=== PATIENT | female | born 1975 | race African-American/Black ===

== ENCOUNTER 2023-01-06 11:13 | Emergency (ER) | payer SELFPAY ==
--- OUTSIDE RECORDS SUMMARY | 2023-01-06 11:15 | XMS REPORT | Continuity of Care Document ---
:1975 Author Organization [facility] t Address [address] [place] [address]. [address] [place] [address] Care Team Providers Name Role Phone ATTAR, LYNDSEY Primary Care Physician Unavailable BISI BUTLER Attending Clinician Unavailable BISI BUTLER Admitting Clinician Unavailable Payers Payer Name Policy Type Policy Number Effective Date Expiration Date S amauri MEDICARE PART A [id number] 2012 \T\ B 00:00:00 Problems This patient has no known problems. Allergies, Adverse Reactions, Alerts Allergy Allergy Status Severity Reaction(s) Onset Inactive Treating Comm ents Source Name Type Date Date Clinician LATEX DRUG Active Hives 2020-0 [facility] ity of 00:00: [address] DAYA DRUG Active Hives 0 [facility] ity of 00:00: [address] MELON DRUG Active Hives 2020-0 [facility] ity of 00:00: [address] NO KNOWN Drug Active [facility] ALLERGIE Class ity of S [facility] Social History Social Habit Start Date Stop Date Quantity Comments Source Gender identity [facility] Sexual orientation [facility] Sex Assigned At [birth year] Met [facility] 00:00:00 00:00:00 Smoking Status Start Date Stop Date Source Tobacco smoking consumption unknown [facility] Medications Ordered Filled Start Stop Current Ordering Indication Dosage Frequency Signature Comments Components Source Medication Medication Date Date Medication? Clinician (SIG) Name Name captopril Yes 6.25mg Q.5D Take 6.25 M ethodi (CAPOTEN) 6-[address] 12.5 MG 13:53: mouth 2 [facility]osp[facility] tablet 15 (two) l times a day. furosemide 2018-0 Yes 40mg Q.5D Take 40 mg M ethodi (LASIX) 40 6-[address] mg tablet 13:53: (two) Hospita 15 times a l day. digOXIN 2018-0 Yes 125ug QD Take 125 Metho di (LANOXIN) 6-[address] 125 mcg 13:53: mouth Hospita tablet 15 daily. l spironolact 2018-0 Yes 25mg QD Take 25 mg [facility] one 6-[address] (ALDACTONE) 13:53: daily. Hosp arcadio 25 MG 15 l tablet minocycline 2018-0 Yes 100mg Q.5D Take 100 M ethodi (MINOCIN,DY 6-[address] NACIN) 100 13:53: mouth 2 Hosp [facility] MG capsule 15 (two) l times a day. aspirin 2018-0 Yes 81mg QD Take 81 mg Meth tobias (ECOTRIN) 6-[address] 81 MG 13:53: daily. Hospita enteric 15 chewable l coated tablet clopidogrel 2018-0 Yes 75mg QD Take 75 mg [facility] (PLAVIX) 75 6-[address] mg tablet 13:53: daily. Hospit a 15 l carvedilol 2018-0 Yes 25mg Q.5D Take 25 mg M [facility]i (COREG) 25 6-[address] MG tablet 13:53: (two) Hospita 15 times a l day with meals. Procedures This patient has no known procedures. Plan of Care Planned Activity Planned Date Details Comments Source Future Scheduled 2022-12-23 Screening for [facility] Test 07:00:16 malignant neoplasm of colon (procedure) [code = 738579004] Future Scheduled 2022-12-23 Screening for [facility] Test 07:00:16 malignant neoplasm of colon (procedure) [code = 225390612] Future Scheduled 2022-12-23 Screening for [facility] Test 07:00:16 malignant neoplasm of colon (procedure) [code = 543503573] Future Scheduled 2022-12-23 [facility] 07:[facility]:16 (#1) [code = COVID-19 VACCINE (#1)] Future Scheduled 2022-12-23 Screening for [facility] Test 07:00:16 malignant neoplasm of cervix (procedure) [code = 776680946] Future Scheduled 2022-12-23 BREAST CANCER [facility] Test 07:00:16 SCREENING [code = BREAST CANCER SCREENING] Future Scheduled 2022-12-23 Screening for [facility] Test 07:00:16 malignant neoplasm of colon (procedure) [code = 401337097] Future Scheduled 2022-12-23 Screening for [facility] Test 07:00:16 malignant neoplasm of colon (procedure) [code = 702618803] Future Scheduled 2022-12-23 INFLUENZA VACCINE [facility] Test 07:00:16 [code = INFLUENZA VACCINE] Encounters Start End Encounter Admission Attending Care Care Encounter Source Date/Time Date/Time Type Type Clinicians Facility Department ID 2020-07-27 2020-08-01 Inpatient X JAVIER BUTLER [facility] [id number] [facility] 10:01:00 16:25:00 BISI vickers of [facility] Results This patient has no known results.
[2023-01-06 11:57] LABS: Absolute Lymphocytes (CBC) 2.2 K/uL (0.7-4.9); Hematocrit 44.9 % (36.0-45.0); Lymphocytes % 29.5 % (15.3-44.8); MPV 9.9 fL (7.6-11.3); Platelets 196 thou/uL (152-406); RBC Red Blood Cell Count 5.68 M/uL (3.86-4.86)
[2023-01-06 12:03] LABS: Protime INR 1.25
[2023-01-06 12:03] LABS: Arterial Blood Carboxyhemoglob 0.8 % (0-1.5); Blood Gas Oxyhemoglobin 11.1 % (94-97); Blood O2 Saturation 11.4 % (92-98.5)
[2023-01-06] MEDS ORDERED: NA CHLORIDE 0.9% 100 ML ONE (12:14)
[2023-01-06] MEDS ORDERED: CEFEPIME 2 GM VIAL ONE (12:14)
[2023-01-06 12:17] LABS: Albumin 3.8 g/dL (3.4-5.0); Bilirubin Total 1.5 mg/dL (0.2-1.0); Magnesium 2.2 mg/dL (1.6-2.4); Potassium 3.4 mEq/L (3.5-5.1); Protein, Total 9.2 g/dL (6.4-8.2)
--- NOTE | 2023-01-06 12:25 | RAD REPORT ---
EXAM DESCRIPTION: [facility] [place] Single View01/06/2023 12:18 pm CLINICAL HISTORY: DYSPNEA COMPARISON: CHEST PA AND LAT 2 VIEW dated 09/24/2009; CHEST SINGLE VIEW dated 09/23/2009; CHEST SINGLE V IEW dated 08/22/2009; CHEST SINGLE VIEW dated 08/05/2009 TECHNIQUE: Portable AP view of the chest. FINDINGS: Mild central interstitial prominence. Left chest wall pacer/ AICD in place. No pneumothora x or effusion. The heart remains mildly enlarged. Mediastinal contours are unchanged. IMPRESSION: Central interstitial prominence which could reflect mild central congestion or early joanne maJohn
[2023-01-06 12:37] LABS: Troponin High Sensitivity 1560.8 pg/mL (<58.9)
[2023-01-06] MEDS ORDERED: ONDANSETRON 4 MG/2 ML VIAL ONE (13:13)
--- NOTE | 2023-01-06 13:27 | RAD REPORT ---
EXAM DESCRIPTION: CTAbdomen Pelvis W Contrast - 01/06/2023 1:14 pm CLINICAL HISTORY: Abdominal pain. ABD PAIN COMPARISON: <Comparisons> TECHNIQUE: Biphasic CT imaging of the abdomen and pelvis was performed with 100 ml non-ionic IV cont rast. All CT scans are performed using dose optimization technique as appropriate and may include automated exposure control or mA/KV adjustment according to patient size. FINDINGS: Mild opacities in both lung bases, nonspecific. The majority of the contrast material is in the heart and in the venous system. This may be related t o cardiac dynamics. Significant contrast is seen in the hepatic veins. No focal liver mass or biliary dilatation. Cholecy stectomy clips. The spleen, pancreas, adrenal glands and kidneys are within normal limits No bowel obstruction, free air, free fluid or abscess. Trace pelvic free fluid. The appendix is kiley l. No evidence of significant lymphadenopathy. No suspicious bony findings. IMPRESSION: No acute intra-abdominal or pelvic finding.
[2023-01-06] MEDS ORDERED: NA CHLORIDE 0.9% 500 ML ONE (13:46)
[2023-01-06] MEDS ORDERED: DIGOXIN 0.25 MG/ML AMP ONE (14:24)
[2023-01-06] MEDS ORDERED: LORazepam 2 MG/ML VIAL ONE (14:43)
--- NOTE | 2023-01-06 16:20 | ER ---
Nurse's Notes [facility] Name: Prabha Olson Age: 47 yrs Sex: Female : 1975 Arrival Date: 01/06/2023 Time: 11:13 Bed 2 Private MD: Diagnosis: Atrial flutter with rapid rate;NSTEMI;Septic shock;Nausea vomiting;Diarrhea;Acute kidney injury Presentation: 01/06 11:11 Chief complaint: EMS states: Shortness of breath today. Has had N/V/D since Wednesday. nj1 Uses 2 LPM via NC PRN. EMS reports SPO2 of 79% on the 2 LPM. BP 73/44. Started her on bolus NS. EMS reports temp of 100.3. 11:11 Coronavirus screen: Vaccine status: Patient reports receiving the 2nd dose of the covid nj1 vaccine. Ebola Screen: Patient denies travel to an Ebola-affected area in the 21 days before illness onset. Initial Sepsis Screen: Does the patient meet any 2 criteria? HR > 90 bpm. No. Patient's initial sepsis screen is negative. Does the patient have a suspected source of infection? No. Patient's initial sepsis screen is negative. Risk Assessment: Do you want to hurt yourself or someone else? Patient reports no desire to harm self or others. Onset of symptoms was January 06, 2023. Care prior to arrival: Medication(s) given: Normal saline infusion, Given 300ml. Orders to continue IVF per Dr Lombardi. Transition of care: patient was not received from another setting of care. 11:11 Method Of Arrival: EMS: [place] [id number] 11:11 Acuity: KENDRA 2 [facility] SPECIAL EDUCATION ADMINISTRATOR: 11:20 LMP "Two and a half years ago" [facility] Historical: - Allergies: 11:11 Sulfa (Sulfonamide Antibiotics); [facility] - Home Meds: 17:07 carvedilol 25 mg oral tablet 1 tab 2 times per day [Active]; spironolactone 25 mg Oral nj1 tablet 1 tabs daily [Active]; metolazone 5 mg oral tablet 1 tab daily [Active]; clopidogrel 75 mg oral tablet 1 tab daily [Active]; Lasix 40 mg Oral tablet 1 tab 2 times per day [Active]; digoxin 125 mcg (0.125 mg) Oral tablet 1 tabs once [Active]; aspirin 81 mg Oral tablet, delayed release (enteric coated) 1 tab daily [Active]; - PMHx: 11:11 Myocardial infarction; Congestive heart failure; nj1 - PSHx: 11:11 Pacemaker; nj1 - Immunization history:: Client reports receiving the 2nd dose of the Covid vaccine. - Social history:: Smoking status: Patient reports the use of cigarette tobacco products, denies chronic smoking, but will smoke occasionally. - Family history:: not pertinent. Screenin:18 [facility] ED Fall Risk Assessment (Adult) Score/Fall Risk Level 0 - 2 = Low Risk nj1 Oriented to surroundings, Maintained a safe environment, Hourly rounding (assess needs \\T\\ fall precautionary measures) done. Abuse screen: Denies threats or abuse. Denies injuries from another. Nutritional screening: No deficits noted. Tuberculosis screening: No symptoms or risk factors identified. Assessment: 11:20 General: Appears in no apparent distress. uncomfortable, Behavior is calm, cooperative, nj1 appropriate for age. Pain: Denies pain. Neuro: Level of Consciousness is awake, alert, obeys commands, Oriented to person, place, time, situation. Cardiovascular: Denies chest pain, Rhythm is irregular. Respiratory: Reports shortness of breath at rest since last night, worsen today Airway is patent Respiratory effort is even, unlabored. 12:39 Reassessment: Patient appears in no apparent distress at this time. Patient and/or nj1 family updated on plan of care and expected duration. Pain level reassessed. Patient is alert, oriented x 3, equal unlabored respirations, skin warm/dry/pink. 13:35 Reassessment: ERP notified of pts BP of 84/68. VO to hold Metoprolol. mb9 14:05 Respiratory: Respiratory effort is labored, using tripod position, the patient has nj1 severe shortness of breath. 14:10 Respiratory: Breath sounds with crackles in right lower lobe the patient has mild nj1 shortness of breath. 14:55 Reassessment: Patient appears in no apparent distress at this time. Patient and/or nj1 family updated on plan of care and expected duration. Pain level reassessed. Pt resting/sleeping at this time. 16:16 Reassessment: Patient appears in no apparent distress at this time. Sleeping. This RN cm10 removes non re breather and place patient on NC at 4 LPM. 16:56 Reassessment: Patient appears in no apparent distress at this time. Pt resting/sleeping nj1 at this time. 17:19 Reassessment: Patient appears in no apparent distress at this time. Patient and/or nj1 family updated on plan of care and expected duration. Pain level reassessed. Patient is alert, oriented x 3, equal unlabored respirations, skin warm/dry/pink. Patient states feeling better. Patient states symptoms have improved. 18:54 Reassessment: Patient appears in no apparent distress at this time. Patient and/or nj1 family updated on plan of care and expected duration. Pain level reassessed. Patient is alert, oriented x 3, equal unlabored respirations, skin warm/dry/pink. Food provided, ok by ED physician. Patient states feeling better. 19:37 Reassessment: Please call with updates on transfer at [phone], Jim. nj1 21:49 Reassessment: Report given to MALLORIE Britt at [facility] ER. Reassessment: Initiated vc1 transfer to [facility] denied due to no ICU beds. 22:17 Reassessment: Call [facility] back to request IMU bed instead of ICU, denied no beds vc1 available. 22:25 Reassessment: Initiated transfer with Manuelito at [facility], denied do to capacity. vc1 22:28 Reassessment: No changes from previously documented assessment. Patient and/or family mb9 updated on plan of care and expected duration. Pain level reassessed. Patient is alert, oriented x 3, equal unlabored respirations, skin warm/dry/pink. 22:51 Reassessment: Initiated transfer with [facility]. vc1 23:52 Reassessment: Pt accepted at [facility]. vc1 Vital Signs: 11:11 BP 111 / 77; Pulse 113; Resp 18; Temp 97.8(O); Pulse Ox 97% on 4 lpm NC; Weight 56.7 nj1 kg; Height 4 ft. 11 in. ; 12:00 BP 85 / 69; Pulse 101; Resp 18; Pulse Ox 97% on 4 lpm NC; nj1 12:18 BP 96 / 77; Pulse 111; Resp 20; Pulse Ox 100% on 4 lpm NC; nj1 12:46 BP 90 / 74; Pulse 92; Resp 20; Pulse Ox 100% on 4 lpm NC; nj1 13:32 BP 84 / 68; Pulse 122; Resp 14; Pulse Ox 100% 4 lpm ; mb9 14:05 BP 85 / 74; Pulse 156; Pulse Ox 15 lpm Non rebreather; nj1 14:39 BP 90 / 71; Pulse 127; Resp 19; Pulse Ox 98% on 12 lpm Non Rebreather.; nj1 14:54 BP 103 / 85; Pulse 108; Resp 30; Pulse Ox 100% on 12 lpm Non rebreather; nj1 16:15 BP 100 / 70; Pulse 80; Resp 30; Pulse Ox 100% on 12 lpm Non rebreather; cm10 16:55 BP 90 / 51; Pulse 70; Resp 16; Pulse Ox 100% on 4 lpm NC; nj1 18:53 BP 98 / 75; Pulse 78; Resp 19; Temp 97.9; Pulse Ox 98% on 4 lpm NC; nj1 20:40 BP 101 / 69; Pulse 97; Resp 18; Pulse Ox 100% on 4 lpm NC; mb9 21:41 BP 94 / 70; Pulse 86; Resp 22; Pulse Ox 100% on 4 lpm NC; mb9 22:28 BP 98 / 71; Pulse 78; Resp 18; Pulse Ox 100% on 4 lpm NC; mb9 01/07 00:49 BP 109 / 74; Pulse 130; Resp 19; Pulse Ox 100% 4 lpm ; kd3 00:58 BP 90 / 66; Pulse 18; Pulse Ox 100% 4 lpm ; kd3 01/06 11:11 Body Mass Index 25.25 (56.70 kg, 149.86 cm) nj1 ED Course: 01/06 11:11 Arm band placed on. nj1 11:15 Patient arrived in ED. ap3 11:16 Toby Barger MD is Attending Physician. sandhya 11:16 Patient has correct armband on for positive identification. Bed in low position. Call ap3 light in reach. Side rails up X2. physical laboratory assistant on. Pulse ox on. NIBP on. 11:21 Attending Physician role handed off by Toby Barger MD rt 11:21 Shai Lombardi MD is Attending Physician. rt 11:30 EKG done, by ED staff, reviewed by Shai Lombardi MD. ap3 11:47 Deanna Louis, MALLORIE is Primary Nurse. nj1 12:16 Triage completed. nj1 12:20 Chest Single View XRAY In Process Unspecified. EDMS 12:20 Provided Education on: fall precautions, call light. nj1 12:57 Radiology exam delayed due to waiting on meds for nausea prior to CT. ls3 13:16 CT Abd/Pelvis - IV Contrast Only In Process Unspecified. EDMS 13:51 initiated transfer to [facility], per pt request. bd 13:58 pt declined at [facility] due to no beds at this time,per luis. bd 14:10 Notified ED physician of other Respiratory assessment. nj1 14:10 Notified ED physician of other Clarification obtained on positive test from nj Dr Lombardi. Believes it is negative. Continue with treatment. 17:19 No provider procedures requiring assistance completed. nj1 08 00:50 Patient transferred, IV remains in place. kd3 Administered Medications: 01/06 12:10 Drug: Cefepime IVPB 2 grams Route: IVPB; Rate: 200 ml/hr; Infused Over: 30 mins; Site: [facility] right antecubital; 12:40 Follow up: Response: No adverse reaction; IV Status: Completed infusion; IV Intake: nj1 100ml 13:05 Drug: Ondansetron IVP 4 mg Route: IVP; Site: right antecubital; nj1 17:19 Follow up: Response: No adverse reaction nj1 13:35 Drug: NS 0.9% IV 500 ml Route: IV; Rate: bolus; Site: left antecubital; 9 14:56 Follow up: IV Status: Completed infusion; IV Intake: 500ml nj1 14:20 Drug: Digoxin IVP 0.5 mg Route: IVP; Infused Over: 5 mins; Site: right antecubital; nj1 14:56 Follow up: Response: No adverse reaction nj1 14:34 Drug: Ativan IVP 1 mg Route: IVP; Site: left antecubital; nj1 14:56 Follow up: Response: No adverse reaction nj1 17:18 Not Given (Hemodynamic Parameters): Metoprolol IVP 5 mg IVP every 5 minutes; Hold for nj1 SBP < 100 or HR < 60. x3 17:18 Not Given (Patient Refused): fentaNYL (PF) IVP 50 mcg IVP once nj1 17:18 Not Given (Patient Refused): Ondansetron IVP 2 mg IVP once; over 2 minutes nj1 Medication: 12:39 VIS not applicable for this client. nj1 Intake: 12:40 IV: 100ml; Total: 100ml. nj1 14:56 IV: 500ml; Total: 600ml. nj1 Outcome: 16:20 ER care complete, transfer ordered by . rt 01/07 00:50 Transferred by ground EMS kd3 Condition: stable Discharge instructions given to patient, Instructed on the need for admit, Demonstrated understanding of instructions. 01:17 Patient left the ED. kd3 Signatures: Dispatcher [employer] EDMS Caroline Hussein Corey, MD MD cha Prokisch, Amanda RN RN kathe3 Judy Flores3 Dayanara Arango RN RN kd3 Anjali Ly RN RN 1 Ivet Jacobs, RN RN mb9 Shai Lombardi MD MD rt Deanna Louis RN RN nj1 Ember Gonsales RN RN cm10 Corrections: (The following items were deleted from the chart) 01/06 12:46 12:18 BP 137 / 75; Pulse 103bpm; Resp 14bpm; Pulse Ox 95% 4 lpm Nasal Cannula; nj1 nj1 14:37 14:37 Digoxin IVP 0.5 mg IVP in right antecubital over 5 mins nj1 nj1 14:41 14:05 BP 85 / 74; Pulse 156bpm; nj1 nj1
--- NOTE | 2023-01-06 16:21 | EDPHYS ---
Physician Documentation [facility] Name: Prabha lOson Age: 47 yrs Sex: Female : 1975 Arrival Date: 01/06/2023 Time: 11:13 Bed 2 Private MD: ED Physician Shai Lombardi HPI: 01/06 11:28 This 47 yrs old Black Female presents to ER via Unassigned with complaints of Shortness rt of breath. 11:28 Patient with history of congestive heart failure presents to the ED with 2 days of rt nausea, vomiting, diarrhea. Denies hematemesis, hematochezia. Denies any significant abdominal pain but does state that she has symptoms consistent with reflux. The patient states that she became short of breath today. States that she was wearing 2 L of home O2, EMS stated that her saturations were 79% on these 2 L. This did improve on 6 L by nonrebreather. This also improved patient's shortness of breath. Patient was also noted to be hypotensive, received modest hydration. Denies other acute complaints at this time. Symptoms are moderate in severity, no other aggravating or alleviating factors. 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: 11:20 LMP "Two and a half years ago" nj Historical: - Allergies: 11:11 Sulfa (Sulfonamide Antibiotics); nj1 - Home Meds: 17:07 carvedilol 25 mg oral tablet 1 tab 2 times per day [Active]; spironolactone 25 mg Oral nj1 tablet 1 tabs daily [Active]; metolazone 5 mg oral tablet 1 tab daily [Active]; clopidogrel 75 mg oral tablet 1 tab daily [Active]; Lasix 40 mg Oral tablet 1 tab 2 times per day [Active]; digoxin 125 mcg (0.125 mg) Oral tablet 1 tabs once [Active]; aspirin 81 mg Oral tablet, delayed release (enteric coated) 1 tab daily [Active]; - PMHx: 11:11 Myocardial infarction; Congestive heart failure; nj1 - PSHx: 11:11 Pacemaker; nj1 - Immunization history:: Client reports receiving the 2nd dose of the Covid vaccine. - Social history:: Smoking status: Patient reports the use of cigarette tobacco products, denies chronic smoking, but will smoke occasionally. - Family history:: not pertinent. ROS: 11:28 Cardiovascular: Negative for chest pain, palpitations, and edema, MS/Extremity: rt Negative for injury and deformity, Skin: Negative for injury, rash, and discoloration, Neuro: Negative for headache, weakness, numbness, tingling, and seizure, Psych: Negative for depression, anxiety, suicide ideation, homicidal ideation, and hallucinations. 11:28 Constitutional: Positive for fever, malaise. 11:28 Respiratory: Positive for shortness of breath, Negative for cough. 11:28 Abdomen/GI: Positive for nausea, vomiting, and diarrhea, Negative for abdominal pain. Exam: 11:28 Constitutional: This is a well developed, well nourished patient who is awake, alert, rt and in no acute distress. Head/Face: Normocephalic, atraumatic. Chest/axilla: Normal chest wall appearance and motion. Nontender with no deformity. No lesions are appreciated. Cardiovascular: Regular rate and rhythm with a normal S1 and S2. No gallops, murmurs, or rubs. Normal PMI, no JVD. No pulse deficits. Abdomen/GI: Soft, non-tender, with normal bowel sounds. No distension or tympany. No guarding or rebound. No evidence of tenderness throughout. Skin: Warm, dry with normal turgor. Normal color with no rashes, no lesions, and no evidence of cellulitis. MS/ Extremity: Pulses equal, no cyanosis. Neurovascular intact. Full, normal range of motion. Neuro: Awake and alert, GCS 15, oriented to person, place, time, and situation. Cranial nerves II-XII grossly intact. Motor strength 5/5 in all extremities. Sensory grossly intact. Cerebellar exam normal. Normal gait. Psych: Awake, alert, with orientation to person, place and time. Behavior, mood, and affect are within normal limits. 11:28 ECG was reviewed by the Attending Physician. 11:28 Respiratory: Coarse breath sounds diffusely, no respiratory distress. 14:24 ECG was reviewed by the Attending Physician. rt Vital Signs: 11:11 BP 111 / 77; Pulse 113; Resp 18; Temp 97.8(O); Pulse Ox 97% on 4 lpm NC; Weight 56.7 nj1 kg; Height 4 ft. 11 in. ; 12:00 BP 85 / 69; Pulse 101; Resp 18; Pulse Ox 97% on 4 lpm NC; nj1 12:18 BP 96 / 77; Pulse 111; Resp 20; Pulse Ox 100% on 4 lpm NC; nj1 12:46 BP 90 / 74; Pulse 92; Resp 20; Pulse Ox 100% on 4 lpm NC; nj1 13:32 BP 84 / 68; Pulse 122; Resp 14; Pulse Ox 100% 4 lpm ; mb9 14:05 BP 85 / 74; Pulse 156; Pulse Ox 15 lpm Non rebreather; nj1 14:39 BP 90 / 71; Pulse 127; Resp 19; Pulse Ox 98% on 12 lpm Non Rebreather.; nj1 14:54 BP 103 / 85; Pulse 108; Resp 30; Pulse Ox 100% on 12 lpm Non rebreather; nj1 16:15 BP 100 / 70; Pulse 80; Resp 30; Pulse Ox 100% on 12 lpm Non rebreather; cm10 16:55 BP 90 / 51; Pulse 70; Resp 16; Pulse Ox 100% on 4 lpm NC; nj1 18:53 BP 98 / 75; Pulse 78; Resp 19; Temp 97.9; Pulse Ox 98% on 4 lpm NC; nj1 20:40 BP 101 / 69; Pulse 97; Resp 18; Pulse Ox 100% on 4 lpm NC; mb9 21:41 BP 94 / 70; Pulse 86; Resp 22; Pulse Ox 100% on 4 lpm NC; mb9 22:28 BP 98 / 71; Pulse 78; Resp 18; Pulse Ox 100% on 4 lpm NC; mb9 01/07 00:49 BP 109 / 74; Pulse 130; Resp 19; Pulse Ox 100% 4 lpm ; kd3 00:58 BP 90 / 66; Pulse 18; Pulse Ox 100% 4 lpm ; kd3 01/06 11:11 Body Mass Index 25.25 (56.70 kg, 149.86 cm) nj1 MDM: 01/06 11:16 Patient medically screened. sandhya 16:20 Differential diagnosis: Septic shock, cardiogenic shock, volume depletion, dysrhythmia. rt Data reviewed: vital signs, nurses notes, lab test result(s), EKG, radiologic studies. Consideration of Admission/Observation Escalation of care including admission/observation considered. Management of patient was discussed with the following: [employer]: Discussed with cardiology on-call, states that patient would be better served at a tertiary care center, will arrange for transfer.. I considered the following discharge prescriptions or medication management in the emergency department Medications were administered in the Emergency Department. See MAR. Independent interpretation of the following test(s) in the Emergency Department X-Ray: My interpretation is No consolidation seen on my interpretation of the x-ray images. Care significantly affected by the following chronic conditions: Congestive Heart Failure. Counseling: I had a detailed discussion with the patient and/or guardian regarding the historical points, exam findings, and any diagnostic results supporting the discharge/admit diagnosis, lab results, radiology results, the need to transfer to another facility. Response to treatment: the patient's symptoms have markedly improved after treatment. 01/06 11:22 Order name: Blood Culture Adult (2) rt 01/06 11:22 Order name: CBC with Diff; Complete Time: 12:24 rt 01/06 11:22 Order name: CMP; Complete Time: 12:41 rt 01/06 11:22 Order name: Lactate w/ 2H reflex if indic.; Complete Time: 12:41 rt 01/06 11:22 Order name: Protime (+inr); Complete Time: 12:24 rt 01/06 11:22 Order name: Ptt, Activated; Complete Time: 12:24 rt 01/06 11:22 Order name: ABG; Complete Time: 12:24 rt 01/06 11:22 Order name: Test, Serum; Complete Time: 13:22 rt 01/06 11:22 Order name: Lipase; Complete Time: 12:41 rt 01/06 11:22 Order name: Troponin High Sensitivity; Complete Time: 12:41 rt 01/06 11:22 Order name: BNP; Complete Time: 12:41 rt 01/06 11:22 Order name: Magnesium; Complete Time: 12:41 rt 01/06 13:22 Order name: HCG-Quantitative; Complete Time: 14:02 rt 01/06 18:12 Order name: Lactate Sepsis 2 HR Follow-up; Complete Time: 21:43 EDMS 01/06 11:22 Order name: Chest Single View XRAY; Complete Time: 12:41 rt 01/06 11:22 Order name: CT Abd/Pelvis - IV Contrast Only; Complete Time: 13:28 rt 01/06 11:22 Order name: EKG; Complete Time: 11:23 rt 01/06 11:22 Order name: Accucheck; Complete Time: 13:41 rt 01/06 11:22 Order name: Cardiac monitoring; Complete Time: 11:30 rt 01/06 11:22 Order name: EKG - Nurse/Tech; Complete Time: :30 rt 01/06 11:22 Order name: IV Saline Lock - Large Bore; Complete Time: 11:47 rt 01/06 11:22 Order name: Labs collected and sent; Complete Time: 11:47 rt 01/06 11:22 Order name: O2 Per Protocol; Complete Time: : rt 01/06 11:22 Order name: O2 Sat Monitoring; Complete Time: :30 rt 01/06 11:22 Order name: Vital Signs; Complete Time: 12:01 rt EC:28 Rate is 108 beats/min. Rhythm is regular, A flutter with No ectopy, Rate related ST and rt T wave change. QRS Chestnut is Normal. QRS interval is normal. QT interval is normal. No Q waves. 14:24 Rate is 130 beats/min. Rhythm is regular, A flutter with No ectopy. QRS Chestnut is Normal. rt QRS interval is normal. QT interval is normal. No Q waves. Administered Medications: 12:10 Drug: Cefepime IVPB 2 grams Route: IVPB; Rate: 200 ml/hr; Infused Over: 30 mins; Site: [facility] right antecubital; 12:40 Follow up: Response: No adverse reaction; IV Status: Completed infusion; IV Intake: nj1 100ml 13:05 Drug: Ondansetron IVP 4 mg Route: IVP; Site: right antecubital; nj1 17:19 Follow up: Response: No adverse reaction nj1 13:35 Drug: NS 0.9% IV 500 ml Route: IV; Rate: bolus; Site: left antecubital; 9 14:56 Follow up: IV Status: Completed infusion; IV Intake: 500ml nj1 14:20 Drug: Digoxin IVP 0.5 mg Route: IVP; Infused Over: 5 mins; Site: right antecubital; nj1 14:56 Follow up: Response: No adverse reaction nj1 14:34 Drug: Ativan IVP 1 mg Route: IVP; Site: left antecubital; nj1 14:56 Follow up: Response: No adverse reaction nj1 17:18 Not Given (Hemodynamic Parameters): Metoprolol IVP 5 mg IVP every 5 minutes; Hold for nj1 SBP < 100 or HR < 60. x3 17:18 Not Given (Patient Refused): fentaNYL (PF) IVP 50 mcg IVP once nj1 17:18 Not Given (Patient Refused): Ondansetron IVP 2 mg IVP once; over 2 minutes nj1 Disposition: 16:20 Critical Care:. rt Disposition Summary: 01/06/23 16:20 Transfer Ordered Transfer Location: [facility] rt Reason: Higher level of care rt Condition: Serious rt Problem: new rt Symptoms: have improved rt Accepting Physician: Dr. Fajardo(01/07/23 01:17) kd3 Diagnosis - Atrial flutter with rapid rate rt - NSTEMI rt - Septic shock rt - Nausea vomiting rt - Diarrhea rt - Acute kidney injury rt Forms: - Medication Reconciliation Form rt - SBAR form rt Critical care time excluding procedures: 16:20 Critical care time: Bedside Care: 40 minutes, Consultation: 10 minutes. Total time: 50 rt minutes Signatures: Dispatcher [employer] EDToby Wynne MD MD cha Rittger, Kevin, MD MD kdr Doucette, Kyli RN RN kd3 Ivet Jacobs RN RN mb9 Shai Lombardi MD MD rt Deanna Louis RN RN nj1 Corrections: (The following items were deleted from the chart) 01/07 01:17 01/06 16:20 Dr. Fajardo rt kd3
[2023-01-07 01:34] VITALS: TEMP 97.9
[2023-01-07 01:35] VITALS: O2SAT 100
[2023-01-07 01:40] VITALS: BP 90/66
--- NOTE | 2023-01-07 17:31 | EKG ---
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
--- NOTE | 2023-01-11 18:11 | EKG ---
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
== END 2023-01-07 01:17 | disposition short-term general hospital (02) ==
LOC: ER 11:13
DX: I21.4 Non-ST elevation (NSTEMI) myocardial infarction (principal); A41.9 Sepsis, unspecified organism; R65.21 Severe sepsis with septic shock; I48.92 Unspecified atrial flutter; N17.9 Acute kidney failure, unspecified; R19.7 Diarrhea, unspecified; Z95.0 Presence of cardiac pacemaker
CPT/HCPCS: 36415; 71045; 74177; 80053; 82805; 83605; 83690; 83735; 83880; 84484; 84702; 84703; 85025; 85610; 85730; 87040; 93005; 99285; J0692; J1160; J2405; J7040; Q9967